=== PATIENT | female | born 1980 | race Caucasian/White ===

== ENCOUNTER 2016-09-25 14:04 | Emergency (ER) | payer MEDICAID, OTHER, SELFPAY ==
[~2016-09-25] VITALS: Ht 167.6 cm; Wt 102.7 kg
[2016-09-25 14:04] VITALS: BP 112/58
[~2016-09-25 14:04] MED LIST: MOTR200T44 PO
== END 2016-09-25 16:16 | disposition home or self-care (01) ==
LOC: M ED 14:04
DX: M54.5 Low back pain (principal); F17.210 Nicotine dependence, cigarettes, uncomplicated

== ENCOUNTER 2017-11-30 14:12 | Emergency (ER) | payer MEDICAID ==
[2017-11-30 15:28] LABS: BASO % 0.4 % (0.0-1.0); EOS # 0.4 10^3/uL (0.0-0.50); EOS % 3.8 % (0.0-3.0); HEMATOCRIT 39.8 % (36.0-47.0); HEMOGLOBIN 13.7 g/dl (12.0-15.5); IMMATURE GRANULOCYTE % 0.3 % (0-3.0); LYMPH # 4.2 10^3/uL (1.5-4.5); LYMPH % 41.9 % (24.0-44.0); MEAN CORPUSCULAR HEMOGLOBIN 30.2 pg (27.0-33.0); MEAN CORPUSCULAR HGB CONC 34.4 g/dl (32.0-36.5); MEAN CORPUSCULAR VOLUME 87.9 fl (80.0-96.0); MONO # 0.6 10^3/uL (0.0-0.8); NEUTROPHILS # 4.8 10^3/uL (1.8-7.7); NEUTROPHILS % 47.6 % (36.0-66.0); PLATELET COUNT, AUTOMATED 290 10^3/uL (150-450); RED BLOOD COUNT 4.53 10^6/uL (4.00-5.40); RED CELL DISTRIBUTION WIDTH 13.2 % (11.5-14.5)
[2017-11-30 15:51] LABS: D-DIMER QUANT < 270.0 ng/ml (<500)
[2017-11-30 15:57] LABS: ANION GAP 7 MEQ/L (8-16); BLOOD UREA NITROGEN 13 MG/DL (7-18); CALCIUM LEVEL 8.8 MG/DL (8.5-10.1); CARBON DIOXIDE LEVEL 26 MEQ/L (21-32); CHLORIDE LEVEL 110 MEQ/L (98-107); CPK CREATINE PHOSPHOKINASE 104 U/L (26-192); CREATININE FOR GFR 0.66 MG/DL (0.55-1.30); GLOMERULAR FILTRATION RATE > 60.0 (>60); GLUCOSE, FASTING 90 MG/DL (70-100); MB/CK RELATIVE INDEX 1.83 (< OR =4); SODIUM LEVEL 143 MEQ/L (136-145); TROPONIN I < 0.02 NG/ML (< 0.10)
== END 2017-11-30 17:48 | disposition left against medical advice (07) ==
LOC: M ED 17:48
DX: R07.9 Chest pain, unspecified (principal); R00.1 Bradycardia, unspecified; Z53.21 Procedure and treatment not carried out due to patient leaving prior to being seen by health care provider

== ENCOUNTER → 2020-02-18 | Outpatient (CLI) | payer SELFPAY ==
[~2020-02-18] MED LIST changes: +ASPI-255 PO
== END ==
LOC: M LABSMTC 12:30
PROVIDERS: ATTEND Pediatrics
DX: Z20.822 Contact with and (suspected) exposure to COVID-19 (principal)

== ENCOUNTER → 2020-05-15 | Outpatient (CLI) | payer OTHER ==
[~2020-05-15] MED LIST changes: +CVS1CAP2 PO
--- NOTE | 2020-05-15 19:08 | REP ---
INDICATION: ENCOUNTER FOR OTHER PREPROCEDURAL EXAMINATION. COMPARISON: None. TECHNIQUE: Upright PA and lateral chest. FINDINGS: There is a 5 mm nodule in the left upper lobe. Lung bauer are otherwise clear. Cardiac size is normal. The diane, mediastinum, and skeletal structures are unremarkable. IMPRESSION: Left upper lobe 5 mm nodule. I would recommend CT for follow-up. Otherwise, negative PA and lateral chest. <Electronically signed by Elijah Luna > 05/15/20 [id number]
== END ==
LOC: M RAD 15:04
PROVIDERS: ATTEND Physician Assistant Medical
DX: Z01.818 Encounter for other preprocedural examination (principal); Z11.52 Encounter for screening for COVID-19

== ENCOUNTER → 2020-05-16 | Outpatient (CLI) | payer MEDICAID | LOC: M LABSMTC 11:10 | PROVIDERS: ATTEND Anesthesiology | DX: Z01.818 Encounter for other preprocedural examination (principal); Z11.52 Encounter for screening for COVID-19 ==

== ENCOUNTER 2020-05-21 06:16 | Day surgery (SDC) | payer OTHER ==
[~2020-05-21] VITALS: Ht 170.2 cm; Wt 117.2 kg
[~2020-05-21 06:16] MED LIST changes: +LR 1,000 ML IV ONE
[2020-05-21] MEDS ORDERED: ceFAZolin SOD 2 GM in IV 1 EA IV ONE (06:30)
[2020-05-21] MEDS ORDERED: ceFAZolin 2 GM/D5W 50 ML IV BAG (J0690 PER 500MG) As Ordered ONE (06:36)
[2020-05-21] MEDS ORDERED: dexameTHASONE 4 MG/ML 1ML VIAL (J1100 PER 1MG) As Ordered ONE ×2 (07:11→07:15)
[2020-05-21] MEDS ORDERED: BUPIVACAINE HCL 0.5% 10ML VIAL As Ordered ONE (07:11)
[2020-05-21] MEDS ORDERED: LIDOCAINE 1% MDV 20ML VIAL As Ordered ONE (07:11)
[2020-05-21] MEDS ORDERED: ONDANSETRON 4MG/2ML VIAL As Ordered ONE (07:15)
[2020-05-21] MEDS ORDERED: KETOROLAC 60MG 2ML VIAL As Ordered ONE (07:15)
[2020-05-21] MEDS ORDERED: LIDOCAINE 2% 100MG/5ML SDV (FOR ANES.) As Ordered ONE (07:15)
[2020-05-21] MEDS ORDERED: ACETAMINOPHEN 1000MG 100ML IV BTL (OFIRMEV) (J0131 PER 10MG) As Ordered ONE (07:15)
[2020-05-21] MEDS ORDERED: MIDAZOLAM INJ 2MG/2ML VIAL (J2250 PER 1MG) As Ordered ONE (07:16)
[2020-05-21] MEDS ORDERED: propofoL 500 MG/50 ML VIAL As Ordered ONE (07:16)
[2020-05-21] MEDS ORDERED: fentaNYL 100 MCG/2 ML INJECTION (J3010) As Ordered ONE ×2 (07:16→09:42)
[2020-05-21] MEDS ORDERED: SUGAMMADEX SODIUM 500 MG/5 ML VIAL (BRIDION) As Ordered ONE (07:50)
[2020-05-21] MEDS ORDERED: ROCURONIUM BROMIDE 50 MG/5 ML VIAL As Ordered ONE (08:20)
[2020-05-21] MEDS ORDERED: PHENYLephrine 500MCG 5ML (100MCG/ML) SYRINGE As Ordered ONE (08:23)
[2020-05-21] MEDS ORDERED: BUPIVACAINE LIPOSOME/PF 1.3% 20ML VIAL (13.3MG/ML)(EXPAREL)(C9290 PER1MG) As Ordered ONE (09:17)
[2020-05-21] MEDS ORDERED: HYDR-3713 PO (09:41)
[2020-05-21] MEDS: fentaNYL 100 MCG/2 ML INJECTION (J3010) IV PRN ×2 (09:45→09:50)
[2020-05-21] MEDS ORDERED: LR 1,000 ML IV SCH (09:55)
[2020-05-21] MEDS ORDERED: MEPERIDINE INJ 25 MG/ML VIAL (J2175) IV PRN (09:55)
[2020-05-21] MEDS ORDERED: ONDANSETRON 4MG/2ML VIAL IV PRN (09:55)
[2020-05-21] MEDS ORDERED: METOCLOPRAMIDE INJ 10MG/2ML VIAL (J2765 PER 1) IV PRN (09:55)
[2020-05-21] MEDS: oxyCODONE 5MG TAB PO PRN ×2 (10:04→11:08)
[2020-05-21 11:40] VITALS: BP 112/57
--- NOTE | 2020-05-21 11:48 | REP ---
INDICATION: OPERATIVE. Left foot. COMPARISON: None. TECHNIQUE: Two views. 61.9 seconds of fluoroscopy time. FINDINGS: A sequence of 2 last image hold fluoroscopically obtained spot radiographs of the left foot document left 1st tarsometatarsal arthrodesis. IMPRESSION: operative imaging. <Electronically signed by Florencio Mathis > 05/21/20 [id number]
--- NOTE | 2020-05-21 12:30 | RO ---
OPERATIVE NOTE DATE OF OPERATION: 05/21/2020 PREOPERATIVE DIAGNOSIS: Left foot bunion. POSTOPERATIVE DIAGNOSIS: Left foot bunion. PROCEDURE: Left foot Lapidus bunionectomy. SURGEON: Los Childress DPM REEL CART OPERATOR: None. ANESTHESIA: General endotracheal anesthesia, preop injection of 20 mL of 1: 1 mixture 1% Lidocaine plain and 0.5% Marcaine plain. ESTIMATED BLOOD LOSS: Minimal. MATERIALS: [employer] Lapiplasty System 2, 3-0 and 4-0 Vicryl, 4-0 nylon. INJECTABLES: 1 mL Decadron 4 mg per mL and 20 mL of Exparel. COMPLICATIONS: None. CONDITION: Stable. INDICATIONS: Nelida Leigh is a 40-year-old female who presents to [facility] with complaints of painful bunion who presents today for surgical correction. The patient side and site were identified and marked preoperative holding area. Consent was reviewed and obtained. All risks, complications and alternatives to the procedure were explained to the patient in detail and all questions were answered. DESCRIPTION OF PROCEDURE: The patient was brought to the operating room and placed on the operating table in supine position. General endotracheal anesthesia was delivered by the anesthesia team. Preoperative injection of 20 mL of 1:1 mixture of 1% Lidocaine plain and 0.5% Marcaine plain were injected in the left foot. The left foot was prepped and draped in normal sterile fashion. Tourniquet was applied to the left ankle and inflated at 225 mmHg. Dorsal incision was made over the 1st metatarsocuneiform joint and down to the metatarsal head. This was carried through with #15 blade. Dissection was first carried to the metatarsocuneiform joint. The overlying small vessels were cauterized with Bovie. Linear capsulotomy was performed exposing the joint surface of the metatarsocuneiform. Soft tissue attachments and ligamentous attachments were released using #15 blade and osteotome. Attention was paid distally. Dorsal capsulotomy of the metatarsophalangeal joint capsule was exposing the metatarsal head and following this a lateral release was performed releasing the lateral capsule, adductor tendon and sesamoidal ligaments. Joystick wire was inserted at the base of the metatarsal allowing for frontal plane rotation and reduction was manually performed and visualized with C-arm. Stab incision was made over the 2nd metatarsal to allow for the compressor to be applied. The compressor was applied to the 1st and 2nd metatarsals and the intermetatarsal angle was reduced, again verified on C-arm. The joint cut guide was applied and the cartilage surface of the metatarsocuneiform joint was removed through the cut guide. Joints were fenestrated with a drill. The joint compressor was applied after removing the metatarsal compressor. Following this provisional fixation was applied and after good position was verified the two plates were applied dorsal and medial, each with four locking screws. Provisional fixation was removed. The medial head of the metatarsal bone was resected with sagittal saw and smoothed with rasp. Site was irrigated with normal saline. Capsular repair was performed with 3-0 Vicryl, subcutaneous closure with 4-0 Vicryl and skin closure with 4-0 nylon. 1 mL Decadron was injected and 20 mL Exparel was injected. Sterile dressings were applied. Tourniquet was deflated. Posterior splint was applied. The patient was brought to PACU with vital signs and neurovascular status intact. She will be nonweightbearing. She will follow up in the office in two days.
== END 2020-05-21 12:10 | disposition home or self-care (01) ==
LOC: M SDC 06:16
PROVIDERS: ATTEND Podiatrist Foot & Ankle Surgery
DX: M21.612 Bunion of left foot (principal); K21.9 Gastro-esophageal reflux disease without esophagitis; R06.83 Snoring; F17.210 Nicotine dependence, cigarettes, uncomplicated; Z91.040 Latex allergy status
CPT/HCPCS: 28297; 76000; 81025; 88300; 97116; 97161; C1713; C9290; J0131; J0690; J1100; J1885; J2250; J2370; J2405; J3010

== ENCOUNTER 2020-05-31 18:44 | Emergency (ER) | payer OTHER ==
[~2020-05-31] VITALS: Ht 167.6 cm; Wt 120.8 kg
[~2020-05-31 18:44] MED LIST changes: +HYDR-3713 PO; -LR 1,000 ML IV ONE
[2020-05-31] MEDS ORDERED: OXYC10TA3 PO (18:53)
[2020-05-31] MEDS ORDERED: PERCOCET 5MG/325MG TAB PO ONE ×2 (19:25→21:35)
--- NOTE | 2020-05-31 20:29 | REP ---
INDICATION: foot swelling 10 days post bunionectomy COMPARISON: None. TECHNIQUE: AP, lateral, bilateral oblique views left foot. FINDINGS: Evidence for prior surgical procedure at the 1st tarsometatarsal joint. Generalized soft tissue swelling is appreciated. No subcutaneous emphysema or abnormal foreign body. No acute fracture or dislocation. IMPRESSION: Soft tissue swelling. Postsurgical changes. <Electronically signed by Nacho Cm > 05/31/202024
[2020-05-31] MEDS ORDERED: PERC10TA26 PO (21:11)
[2020-05-31 21:30] VITALS: BP 120/73
== END 2020-05-31 21:48 | disposition home or self-care (01) ==
LOC: M ED 18:44
DX: Z47.89 Encounter for other orthopedic aftercare (principal); R22.42 Localized swelling, mass and lump, left lower limb; F17.200 Nicotine dependence, unspecified, uncomplicated; Z91.040 Latex allergy status

== ENCOUNTER 2020-07-16 08:19 | Emergency (ER) | payer OTHER ==
[~2020-07-16] VITALS: Ht 170.2 cm; Wt 121.4 kg
[~2020-07-16 08:19] MED LIST changes: +OXYC10TA3 PO; +PERC10TA26 PO
[2020-07-16] MEDS ORDERED: MORPHINE 4 MG/ML 1ML VIAL/SYRINGE (J2270) IV PRN (08:55)
[2020-07-16] MEDS ORDERED: ONDANSETRON 4MG/2ML VIAL IV ONE (08:55)
[2020-07-16 09:23] LABS: HEMATOCRIT 40.9 % (36.0-47.0); HEMOGLOBIN 13.6 g/dl (12.0-15.5); MEAN CORPUSCULAR HEMOGLOBIN 30.3 pg (27.0-33.0); MEAN CORPUSCULAR HGB CONC 33.3 g/dl (32.0-36.5); MEAN CORPUSCULAR VOLUME 91.1 fl (80.0-96.0); PLATELET COUNT, AUTOMATED 254 10^3/uL (150-450); RED BLOOD COUNT 4.49 10^6/uL (4.00-5.40); WHITE BLOOD COUNT 9.7 10^3/uL (4.0-10.0)
--- NOTE | 2020-07-16 09:26 | REP ---
INDICATION: CHEST PAIN COMPARISON: 05/15/2020 TECHNIQUE: Portable AP view of the chest FINDINGS: The mediastinum and cardiac silhouette are stable and within normal limits for portable technique. The lung bauer are clear without acute consolidation, effusion, or pneumothorax. Skeletal structures are intact. IMPRESSION: No acute cardiopulmonary process appreciated. <Electronically signed by Nacho Cm > 07/16/20 [id number]
[2020-07-16] MEDS ORDERED: ISOVUE-370 76% 100ML VIAL As Ordered ONE (09:43)
[2020-07-16 10:02] LABS: ALBUMIN 3.2 GM/DL (3.2-5.2); ALT/SGPT 23 U/L (12-78); BILIRUBIN,DIRECT < 0.1 MG/DL (0.0-0.2); BILIRUBIN,TOTAL 0.1 MG/DL (0.2-1.0); FREE T4 0.96 NG/DL (0.76-1.46); LIPASE 231 U/L (73-393); TOTAL PROTEIN 6.4 GM/DL (6.4-8.2)
[2020-07-16 10:03] LABS: ATYPICAL LYMPH 1 % (0-5); BASOPHILS 1 % (0-1); EOSINOPHILS 4 % (0-3); LYMPHOCYTES 38 % (16-44); MONOCYTES 4 % (0-5); NEUTROPHILS 52 % (28-66)
[2020-07-16 10:04] LABS: PLATELET ESTIMATE NORMAL (NORMAL)
--- NOTE | 2020-07-16 10:31 | REP ---
INDICATION: R/O PE COMPARISON: None. TECHNIQUE: CT ANGIOGRAPHY OF THE CHEST ATTENTION PULMONARY ARTERIES AFTER THE INTRAVENOUS ADMINISTRATION OF 75 CC ISOVUE 370 FINDINGS: There is excellent visualization of the pulmonary arterial vasculature. No focal filling defects are present that would be considered consistent with acute pulmonary emboli. Limited evaluation of the thoracic aorta shows no abnormality. There is a tiny amount of soft tissue density which is of uniformly low density in the anterior junction line splaying it somewhat but with mild convex margins. There is no mediastinal or hilar adenopathy. There are no pleural or pericardial effusions. The imaged upper abdomen shows an incomplete enhancing lesion in the posterior segment of the right lobe of the liver which measures approximately 2 cm and having the appearance of early peripheral nodular enhancement. The imaged osseous structures are within normal limits. Evaluation of the lung bauer shows no abnormal nodules, masses, or opacities. There is bilateral dependent subsegmental atelectatic change and there is an incidental calcified granuloma in the apicoposterior segment of the left upper lobe. IMPRESSION: 1. There is no evidence of a pulmonary embolism. 2. There is a lesion seen in the posterior segment of the left lobe of the liver which appears to represent a benign hemangioma, however, since it is incompletely evaluated I would recommend pre and post gadolinium enhanced hepatic MRI. 3. Other findings as described above. The small amount of soft tissue density seen in the anterior junction line likely represents a small amount of residual thymic tissue. Since are no prior CT examinations for comparison a three-month follow-up is suggested. <Electronically signed by Kofi Mariano > 07/16/20 [id number]
[2020-07-16] MEDS ORDERED: KETOROLAC 30 MG/ML 1ML VIAL IV ONE (12:00)
[2020-07-16] MEDS ORDERED: PERC5TAB12 PO (12:35)
[2020-07-16 13:04] VITALS: BP 94/55
--- NOTE | 2020-07-16 19:49 | ECGEPIP ---
[facility] - ED Test Date: 2020-07-16 Pat Name: HAO WESTBROOK Department: Room: - Gender: Female [employer] Solutions Architect: BILLY : 1980 Requested By: Wale Goodwin Order Number: [id number] Reading MD: Deandra Catalan Measurements Intervals [place] Rate: 57 P: 18 ND: 150 QRS: -11 QRSD: 98 T: 9 QT: 426 QTc: 414 Interpretive Statements Sinus bradycardia prwp similar 11/30/17 Electronically Signed on 07-16-2020 19:48:57 EDT by Deandra Catalan
--- NOTE | 2020-07-16 19:52 | ECGEPIP ---
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
--- NOTE | 2020-07-17 15:12 | ED PDOC ---
Post-Departure Follow-Up cta chest faxed to serina urbano for fu Wale Banuelos MD Jul 17, 2020 15:12
== END 2020-07-16 13:25 | disposition home or self-care (01) ==
LOC: M ED 08:19
DX: R07.9 Chest pain, unspecified (principal); R06.02 Shortness of breath; F17.200 Nicotine dependence, unspecified, uncomplicated; Z91.040 Latex allergy status
CPT/HCPCS: 36415; 71045; 71275; 80047; 80076; 83690; 84439; 84443; 85025; 93005; 93041; 94760; 96374; 96375; 99285; J1885; J2270; J2405; Q9967

== ENCOUNTER 2021-04-22 23:29 | Emergency (ER) | payer OTHER ==
[~2021-04-22] VITALS: Ht 170.2 cm; Wt 100.0 kg
[~2021-04-22 23:29] MED LIST changes: +PERC5TAB12 PO
[2021-04-22] MEDS ORDERED: BUPR150T12 PO (23:45)
[2021-04-22] MEDS ORDERED: ALPR0.25 PO (23:45)
[2021-04-23 00:15] LABS: HEMATOCRIT 44.4 % (36.0-47.0); HEMOGLOBIN 15.1 g/dl (12.0-15.5); MEAN CORPUSCULAR HEMOGLOBIN 30.7 pg (27.0-33.0); MEAN CORPUSCULAR VOLUME 90.2 fl (80.0-96.0); PLATELET COUNT, AUTOMATED 271 10^3/uL (150-450); RED BLOOD COUNT 4.92 10^6/uL (4.00-5.40); WHITE BLOOD COUNT 9.6 10^3/uL (4.0-10.0)
[2021-04-23 00:40] LABS: AMPHETAMINES LEVEL URINE NEGATIVE (NEGATIVE); BARBITURATES URINE NEGATIVE (NEGATIVE); BENZODIAZEPINES URINE NEGATIVE (NEGATIVE); CANNABINOIDS URINE NEGATIVE (NEGATIVE); COCAINE METABOLITE URINE NEGATIVE (NEGATIVE); METHADONE URINE NEGATIVE (NEGATIVE); OPIATES URINE NEGATIVE (NEGATIVE); PHENCYCLIDINE URINE NEGATIVE (NEGATIVE)
[2021-04-23 00:45] LABS: ACETAMINOPHEN LEVEL < 2.0 UG/ML (10.0-30.0); ALBUMIN 3.5 GM/DL (3.2-5.2); ALT/SGPT 90 U/L (12-78); BILIRUBIN,DIRECT < 0.1 MG/DL (0.0-0.2); BILIRUBIN,TOTAL 0.1 MG/DL (0.2-1.0); BLOOD UREA NITROGEN 7 MG/DL (7-18); CALCIUM LEVEL 8.4 MG/DL (8.5-10.1); CARBON DIOXIDE LEVEL 25 MEQ/L (21-32); CHLORIDE LEVEL 108 MEQ/L (98-107); CREATININE FOR GFR 0.65 MG/DL (0.55-1.30); GLOMERULAR FILTRATION RATE > 60.0 (>58); GLUCOSE, FASTING 100 MG/DL (70-100); POTASSIUM SERUM 3.6 MEQ/L (3.5-5.1); SALICYLATE LEVEL 4.7 MG/DL (5.0-30.0); SODIUM LEVEL 139 MEQ/L (136-145); TOTAL PROTEIN 6.9 GM/DL (6.4-8.2)
[2021-04-23 00:47] LABS: HCG, SERUM QUALITATIVE NEGATIVE (NEGATIVE)
[2021-04-23 01:06] LABS: RSV AMPLIFICATION NEGATIVE (NEGATIVE)
[2021-04-23 05:22] VITALS: BP 134/78
== END 2021-04-23 05:24 | disposition home or self-care (01) ==
LOC: M ED 23:29
DX: R45.851 Suicidal ideations (principal); F10.120 Alcohol abuse with intoxication, uncomplicated; F32.A Depression, unspecified

== ENCOUNTER 2022-03-22 13:49 | Emergency (ER) | payer OTHER ==
[~2022-03-22] VITALS: Ht 170.2 cm; Wt 120.0 kg
[2022-03-22 13:49] VITALS: BP 133/75
[~2022-03-22 13:49] MED LIST changes: +ALPR0.25 PO; +BUPR150T12 PO
== END 2022-03-22 15:52 | disposition left against medical advice (07) ==
LOC: M ED 13:49
DX: Z53.21 Procedure and treatment not carried out due to patient leaving prior to being seen by health care provider (principal)